=== PATIENT | male | born 1990 | race African-American/Black ===

== ENCOUNTER 2019-10-10 19:56 | Emergency (ER) | payer SELFPAY ==
[~2019-10-10] VITALS: Ht 180.3 cm; Wt 77.9 kg
[2019-10-10 19:58] VITALS: BP 127/93
[2019-10-10] MEDS ORDERED: AMOXICILLIN 500 MG CAPSULE PO ONE (21:00)
[2019-10-10] MEDS ORDERED: HYDROcodone/APAP 5/325 TABLET PO ONE (21:00)
[2019-10-10] MEDS ORDERED: HYDROcodone/APAP 5/325 TABLET ONE (21:03)
--- NOTE | 2019-10-10 21:05 | NUR ---
MEDS ORDERED FROM PHARMACY.
[2019-10-10] MEDS ORDERED: AMOXICILLIN 500 MG CAPSULE ONE (21:17)
--- NOTE | 2019-10-10 21:21 | NUR ---
MEDS ADMIN PER OCT.
== END 2019-10-10 21:26 | disposition home or self-care (01) ==
LOC: ED 20:50
DX: K04.7 Periapical abscess without sinus (principal); K02.9 Dental caries, unspecified
CPT/HCPCS: 99283